=== PATIENT | male | born 2000 | race Caucasian/White ===

== ENCOUNTER 2021-11-01 20:17 | Emergency (ER) | payer OTHER, SELFPAY ==
[2021-11-01 20:30] VITALS: BP 117/43; PULSE 92; RESP 16; TEMP 37.3; O2SAT 99; BMI 24.3
[2021-11-01] MEDS: Lidocaine HCl 2 % MPF 5 ML VIAL SUBCUT (21:33)
--- NOTE | 2021-11-01 21:57 | ED_ITS ---
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 He reports he is up-to-date on tetanus. He denies being on any blood thinners. He denies any other injuries complaints or concerns at this time. 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) Location: face (right eyebrow) Place: other (while during sports ) Patient tetanus UTD: Yes Context: accidental Associated symptoms: none Related Data Allergies Allergy/AdvReac Type Severity Reaction Status Date / Time No Known Allergies Allergy Verified 11/01/21 20:34 Review of Systems Review of Systems: Constitutional : No Fever, No Chills, Cardiovascular : No Chest Pain, No SOB Respiratory : No Dyspnea Gastrointestinal : No abdominal pain Musculoskeletal : No Joint Swelling Skin : positive skin laceration, No Foreign bodies, No rash, No surrounding erythema Neuro : No Weakness, No Numbness/tingling Psych : No SI/HI/thoughts of self injury Yes all other systems are reviewed and are negative [facility] [place] Past Medical History Attestation statement: The following information was validated with the patient. Medical History No known health problems Social History Social History Advance Directives: No Advance Directives Information Provided: No Physical Exam Vital Signs: Vital Signs: Last Vital Signs Temp 99.1 F 11/01/21 20:30 Pulse 92 11/01/21 20:30 Resp 16 11/01/21 20:30 BP 117/43 L 11/01/21 20:30 Pulse Ox 99 11/01/21 20:30 BMI result Body Mass Index 24.3 vital signs have been reviewed as normal and appeared to be correct. Blood pressure normal Heart rate normal. Respiration rate normal. Temperature normal. Oxygen saturation normal. Appearance: Alert. Oriented X3. No acute distress. Head: 2 cm intermediate linear laceration to the right upper periorbital area with mild soft tissue swelling. No scalp or periorbital tenderness or deformities noted. The rest of the external exam is within normal limits and atraumatic. Eyes: PERRLA. EOMI. Conjunctiva and sclera normal. Eyelids normal. ENT: Pharynx normal. Uvula midline. Moist mucous membranes. Neck: Normal inspection. Neck supple. FROM. CVS: Normal heart rate and rhythm. Respiratory: No respiratory distress. Painless inspiration. Skin: Skin warm and dry. Normal skin color. Normal skin turgor. No rashes/lesions/lacerations noted. Extremities: No lower extremity edema. Extremities exhibit normal range of motion. Extremities nontender. Neuro: Oriented X 3. No motor deficit. No sensory deficit. Reflexes normal. Normal steady gait. No focal neuro deficits noted. Vascular: + radial pulses/+ 2 distal pedal pulses/+2 dorsalis pedis b/l. Normal cap refill. No cyanosis noted to upper extremity nails and lower extremity toes nails. Course Course Course Narrative: Patient now status post laceration repair with 5 simple running stitch. Tetanus is update. No imaging indicated at this time. Will DC home instructions return in 5 days for suture removal and to return any sooner if any new or worsening symptoms to follow up with primary care provider and to avoid any sports for at least 7 days. Patient understands agrees with this plan. Procedures Laceration Laceration 1: Site: face (eyebrow) Side (If applicable): right Size (cm): 2 Description: linear Depth: simple, single layer Local Anesthetic: lidocaine 2% Amount of anesthesia used (mL): 5 Pre-repair: wound explored and irrigated extensively Skin layer closed with: nylon Size (cm): 6-0 Number of sutures: 5 Technique: simple, interrupted Discharge Plan Discharge Clinical Impression: Laceration of eyebrow, right Patient Disposition: Home, Self-Care Instructions: Facial Laceration (ED) Referrals: Lesvia Ospina PA [Emergency Midlevel Provider] - 5 days ( Return here or any other ER any urgent care or your PCP in 5 days for your suture/ stitches to be removed you have [address]) Stand Alone Forms: Work/School Release
== END 2021-11-01 22:17 | disposition home or self-care (01) ==
PROVIDERS: Emergency Provider Internal Medicine
DX: S01.111A Laceration without foreign body of right eyelid and periocular area, initial encounter (principal); W50.0XXA Accidental hit or strike by another person, initial encounter; Y93.75 Activity, martial arts; Y92.39 Other specified sports and athletic area as the place of occurrence of the external cause; Y99.9 Unspecified external cause status
CPT/HCPCS: 12011; 99283; 99284